=== PATIENT | female | born 1975 | race Caucasian/White ===

== ENCOUNTER 2017-06-03 13:03 | Emergency (ER) | payer SELFPAY ==
[~2017-06-03] VITALS: Ht 170.2 cm; Wt 86.2 kg
[~2017-06-03 13:03] MED LIST: ALBU8.5H IH; ATEN-65 PO; AZIT-1 PO; BUTA-324 PO; CEPH-1 PO; CODE118S5 PO; DEXLAN60PT PO; KET10 PO; LOR5/325 PO; MELO-149 PO; METH4TAB66 PO; ONDA4TAB PO; OXYC-865 PO; PRED20TA6 PO; SERT-173 PO; SULF-198 PO; SUMA25TA26 PO; TRAM-420 PO; TRAZ-133 PO; TRAZ-156 PO; [UNRECOGNIZED DRUG - CODE] PO
--- NOTE | 2017-06-03 13:12 | ER Report ---
History and Physical Time Seen By MD: 13:11 HPI/ROS CHIEF COMPLAINT: Vomiting and diarrhea HISTORY OF PRESENT ILLNESS: This is a 41-year-old female who presents to the emergency department for nausea, vomiting and diarrhea. Patient states that her fianc is sick with similar symptoms. She states that her symptoms began yesterday with some nausea and diarrhea as well as vomiting. Patient states that she does not have any episodes of diarrhea she's had 2 episodes of emesis today. Patient denies blood in the stool or emesis. She does have epigastric discomfort. Patient denies aches, chills, urinary, fevers or headaches. REVIEW OF SYSTEMS: Constitutional: No fever, no chills. Eyes: No discharge. ENT: No sore throat. Cardiovascular: No chest pain, no palpitations. Respiratory: No cough, no shortness of breath. Gastrointestinal: As above. Genitourinary: No hematuria. Musculoskeletal: No back pain. Skin: No rashes. Neurological: No headache. Allergies: Coded Allergies: latex (Verified Allergy, Unknown, 02/19/17) Home Meds Active Scripts Ondansetron Hcl (ZOFRAN) 4 Mg Tablet, 4 MG PO Q4-6H, #20 TAB Prov:MICHELLE BURKETT CDL DRIVER-BC 06/03/17 Ondansetron (ZOFRAN ODT) 4 Mg Tab.rapdis, 4 MG PO Q6H Y for NAUSEA/VOMITING, # 20 TAB.URSULA 0 Refills Prov:JALEN ARORA MD 02/19/17 Trazodone Hcl (TRAZODONE HCL) 50 Mg Tablet, 50 MG PO QHS, #30 TAB 0 Refills Prov:JALEN ARORA MD 02/19/17 Oxycodone Hcl/Acetaminophen (PERCOCET 5-325 MG TABLET) 1 Each Tablet, 1 EACH PO Q4H Y for PAIN, #15 TAB 0 Refills Prov:JALEN ARORA MD 02/19/17 Methylprednisolone (METHYLPREDNISOLONE) 4 Mg Tab.ds.pk, 4 MG PO DIRECTED, #1 PACK 0 Refills Prov:JALEN ARORA MD 02/19/17 Prednisone (PREDNISONE) 20 Mg Tablet, 60 MG PO QDAY, #15 TAB 0 Refills Prov:JALEN ARORA MD 02/19/17 Past Medical/Surgical History Patient has a past medical and surgical history of migraines, mitral valve prolapse, retention, asthma, esophageal scarring, GERD, arthritis, osteoarthritis, wears glasses, PTSD, anxiety, depression, both knees have been scoped, right ankle scope. Reviewed Nurses Notes: Yes Hx Smoking: No Smoking Status: Never Smoker Exposure to Second Hand Smoke?: No Hx Substance Use Disorder: No Constitutional Vital Sign - Last 24 Hours 06/03/17 06/03/17 06/03/17 06/03/17 13:13 13:16 13:30 13:33 Temp 98.9 Pulse 99 96 Resp 20 B/P (MAP) 127/82 (97) 127/82 124/80 (95) Pulse Ox 99 95 O2 Delivery Room Air 06/03/17 06/03/17 06/03/17 14:00 14:03 14:30 B/P (MAP) 120/78 (92) 123/76 (92) Pulse Ox 100 Intake and Output 06/03/17 06/03/17 06/04/17 15:00 23:00 07:00 Intake Total 1000 ml Balance 1000 ml Physical Exam General Appearance: The patient is alert, has no immediate need for airway protection and no signs of toxicity. Eyes: Pupils equal and round no pallor or injection. ENT, Mouth: Mucous membranes are moist, pale lips. Respiratory: There are no retractions, lungs are clear to auscultation. Cardiovascular: Regular rate and rhythm, distant systolic murmur, no clicks or rubs. Gastrointestinal: Abdomen is round and soft and tenderness to the epigastrium and palpation, no masses, hypoactive bowel sounds to the right and left upper quadrants, normoactive bowel sounds to the right left lower quadrants. Neurological: Alert and oriented 4. Moving all extremities. Following all commands. No focal neuro deficits. Skin: Warm and dry, no rashes. Musculoskeletal: Neck is supple non tender. Extremities are nontender, nonswollen and have full range of motion. DIFFERENTIAL DIAGNOSIS: After history and physical exam differential diagnosis was considered for abdominal pain including but not limited to appendicitis, cholecystitis, gastritis and urinary tract infection, C. difficile. Medical Decision Making Data Points Result Diagram: 06/03/17 1317 06/03/17 1320 Laboratory Hematology Test 06/03/17 13:10 06/03/17 13:17 06/03/17 13:20 Urine Color Yellow Urine Clarity Slightly-cloudy Urine pH 5.0 pH (4.8-9.5) Urine Specific Hartman 1.023 Urine Protein Negative mg/dL (NEGATIVE) Urine Glucose (UA) Negative mg/dL (NEGATIVE) Urine Ketones Negative mg/dL (NEGATIVE) Urine Blood Small (NEGATIVE) Urine Nitrite Negative (NEGATIVE) Urine Bilirubin Negative (NEGATIVE) Urine Urobilinogen Negative mg/dL (0.2-1.9) Urine Leukocyte Esterase Trace (NEGATIVE) Urine RBC 3 /HPF (0-2/HPF) Urine WBC 2 /HPF (0-5/HPF) Urine Squamous Epithelial Cells Many /LPF (</=FEW) Urine Bacteria Few /HPF (NONE-FEW) Urine Hyaline Casts Few /LPF (NONE-FEW) Urine Mucus Few /HPF (NONE-FEW) Red Blood Count 4.78 M/uL (4.17-5.56) Mean Corpuscular Volume 93.1 fL (80.0-96.0) Mean Corpuscular Hemoglobin 32.7 pg (26.0-33.0) Mean Corpuscular Hemoglobin Concent 35.1 g/dL (32.0-36.0) Red Cell Distribution Width 12.9 % (11.5-14.5) Mean Platelet Volume 7.4 fL (7.2-11.1) Neutrophils (%) (Auto) 77.7 % (39.4-72.5) Lymphocytes (%) (Auto) 9.9 % (17.6-49.6) Monocytes (%) (Auto) 11.0 % (4.1-12.4) Eosinophils (%) (Auto) 0.8 % (0.4-6.7) Basophils (%) (Auto) 0.6 % (0.3-1.4) Nucleated RBC Relative Count (auto) 0.1 /100WBC Neutrophils # (Auto) 6.9 K/uL (2.0-7.4) Lymphocytes # (Auto) 0.9 K/uL (1.3-3.6) Monocytes # (Auto) 1.0 K/uL (0.3-1.0) Eosinophils # (Auto) 0.1 K/uL (0.0-0.5) Basophils # (Auto) 0.1 K/uL (0.0-0.1) Nucleated RBC Absolute Count (auto) 0.01 K/uL Sodium Level 136 mmol/L (137-145) Potassium Level 3.9 mmol/L (3.5-5.0) Chloride Level 101 mmol/L (98-107) Carbon Dioxide Level 24 mmol/L (22-31) Blood Urea Nitrogen 14 mg/dl (7-18) Creatinine 0.90 mg/dl (0.52-1.04) Glomerular Filtration Rate Calc > 60.0 Random Glucose 102 mg/dl (75-110) Calcium Level 9.1 mg/dl (8.4-10.2) Total Bilirubin 1.1 mg/dl (0.2-1.3) Aspartate Amino Transf (AST/SGOT) 37 U/L (0-35) Alanine Aminotransferase (ALT/SGPT) 50 U/L (0-56) Alkaline Phosphatase 68 U/L (0-126) Total Protein 8.1 gm/dl (6.3-8.2) Albumin 4.1 g/dl (3.5-5.0) Chemistry Test 06/03/17 13:10 06/03/17 13:17 06/03/17 13:20 Urine Color Yellow Urine Clarity Slightly-cloudy Urine pH 5.0 pH (4.8-9.5) Urine Specific Hartman 1.023 Urine Protein Negative mg/dL (NEGATIVE) Urine Glucose (UA) Negative mg/dL (NEGATIVE) Urine Ketones Negative mg/dL (NEGATIVE) Urine Blood Small (NEGATIVE) Urine Nitrite Negative (NEGATIVE) Urine Bilirubin Negative (NEGATIVE) Urine Urobilinogen Negative mg/dL (0.2-1.9) Urine Leukocyte Esterase Trace (NEGATIVE) Urine RBC 3 /HPF (0-2/HPF) Urine WBC 2 /HPF (0-5/HPF) Urine Squamous Epithelial Cells Many /LPF (</=FEW) Urine Bacteria Few /HPF (NONE-FEW) Urine Hyaline Casts Few /LPF (NONE-FEW) Urine Mucus Few /HPF (NONE-FEW) White Blood Count 8.9 k/uL (4.5-11.0) Red Blood Count 4.78 M/uL (4.17-5.56) Hemoglobin 15.6 g/dL (12.0-16.0) Hematocrit 44.5 % (34.0-47.0) Mean Corpuscular Volume 93.1 fL (80.0-96.0) Mean Corpuscular Hemoglobin 32.7 pg (26.0-33.0) Mean Corpuscular Hemoglobin Concent 35.1 g/dL (32.0-36.0) Red Cell Distribution Width 12.9 % (11.5-14.5) Platelet Count 352 K/uL (150-450) Mean Platelet Volume 7.4 fL (7.2-11.1) Neutrophils (%) (Auto) 77.7 % (39.4-72.5) Lymphocytes (%) (Auto) 9.9 % (17.6-49.6) Monocytes (%) (Auto) 11.0 % (4.1-12.4) Eosinophils (%) (Auto) 0.8 % (0.4-6.7) Basophils (%) (Auto) 0.6 % (0.3-1.4) Nucleated RBC Relative Count (auto) 0.1 /100WBC Neutrophils # (Auto) 6.9 K/uL (2.0-7.4) Lymphocytes # (Auto) 0.9 K/uL (1.3-3.6) Monocytes # (Auto) 1.0 K/uL (0.3-1.0) Eosinophils # (Auto) 0.1 K/uL (0.0-0.5) Basophils # (Auto) 0.1 K/uL (0.0-0.1) Nucleated RBC Absolute Count (auto) 0.01 K/uL Glomerular Filtration Rate Calc > 60.0 Calcium Level 9.1 mg/dl (8.4-10.2) Total Bilirubin 1.1 mg/dl (0.2-1.3) Aspartate Amino Transf (AST/SGOT) 37 U/L (0-35) Alanine Aminotransferase (ALT/SGPT) 50 U/L (0-56) Alkaline Phosphatase 68 U/L (0-126) Total Protein 8.1 gm/dl (6.3-8.2) Albumin 4.1 g/dl (3.5-5.0) Urinalysis Test 06/03/17 13:10 Urine Color Yellow Urine Clarity Slightly-cloudy Urine pH 5.0 pH (4.8-9.5) Urine Specific Hartman 1.023 Urine Protein Negative mg/dL (NEGATIVE) Urine Glucose (UA) Negative mg/dL (NEGATIVE) Urine Ketones Negative mg/dL (NEGATIVE) Urine Blood Small (NEGATIVE) Urine Nitrite Negative (NEGATIVE) Urine Bilirubin Negative (NEGATIVE) Urine Urobilinogen Negative mg/dL (0.2-1.9) Urine Leukocyte Esterase Trace (NEGATIVE) Urine RBC 3 /HPF (0-2/HPF) Urine WBC 2 /HPF (0-5/HPF) Urine Squamous Epithelial Cells Many /LPF (</=FEW) Urine Bacteria Few /HPF (NONE-FEW) Urine Hyaline Casts Few /LPF (NONE-FEW) Urine Mucus Few /HPF (NONE-FEW) ED Course/Re-evaluation Clinical Indication for ER IV: Hydration, IV Access ED Course The patient was admitted to room. History and physical were obtained. Differential diagnoses were considered. An IV was started. A 1 L normal saline bolus was given. 4 mg IV Zofran. A CBC, CMP and UA were unremarkable. Unable to obtain stool studies while in the emergency department. I did review the results with the patient. The patient is feeling better at this time and feels that she could go home. I did send a prescription for Zofran to the patient's pharmacy. The patient was in agreement with this plan. Patient had no questions or concerns and was discharged home. Decision to Disposition Date: Jun 03, 2017 Decision to Disposition Time: 14:26 Depart Departure Latest Vital Signs Vital Signs Date Time Temp Pulse Resp B/P (MAP) Pulse Ox O2 Delivery O2 Flow Rate FiO2 06/03/17 14:30 123/76 (92) 06/03/17 14:03 100 06/03/17 13:33 96 06/03/17 13:16 98.9 20 Room Air Impression: Primary Impression: Gastroenteritis Condition: Improved Disposition: HOME OR SELF-CARE Referrals: TOMAS MTZ DO (PCP) New Scripts Ondansetron Hcl (ZOFRAN) 4 Mg Tablet 4 MG PO Q4-6H, #20 TAB Prov: MICHELLE BURKETT CDL DRIVER-BC 06/03/17 Patient Instructions: Gastroenteritis (ED) Additional Instructions: Drink plenty of fluids. Get plenty of rest. Try G2 instead of regular Gatorade. Try a clear liquid diet for the next 24-48 hours and progress your diet. May return to the ED for worsening symptoms. Follow up with your primary care provider. MICHELLE BURKETT CDL DRIVER-BC Jun 03, 2017 13:12
[2017-06-03] MEDS ORDERED: NS(*) 0.9% 1000 ML BAG 1,000 ML IV ONE (13:17)
[2017-06-03] MEDS ORDERED: ONDANSETRON 4 MG/2 ML VIAL IVP ONE (13:20)
[2017-06-03 13:42] LABS: PLATELET COUNT, AUTOMATED 352 K/uL (150-450)
[2017-06-03] MEDS ORDERED: ONDA4TAB97 PO (14:29)
[2017-06-03 14:30] VITALS: BP 123/76
== END 2017-06-03 14:42 | disposition home or self-care (01) ==
LOC: ER 13:13
DX: K52.9 Noninfective gastroenteritis and colitis, unspecified (principal)
CPT/HCPCS: 81001; 85025; 96361; 96374; 99284; J2405; J7030; 82040; 82247; 82310; 82374; 82435; 82565; 82947; 84075; 84132; 84155; 84295; 84450; 84460; 84520

== ENCOUNTER → 2017-06-22 | Outpatient (REF) ==
[~2017-06-22] MED LIST changes: +ONDA4TAB97 PO
--- NOTE | 2017-06-23 10:10 | RADIOLOGY IMAGING REPORT ---
FAC[place]: [facility] [place]IENT NAME: SHAR VALENCIA : [id number] MR: [id number] V: [id number] EXAM DATE: ORDERING PHYSICIAN: GALLITO VAZQUEZ TECHNOLOGIST: Paz Horn EXAMINATION:TWO-DIMENSIONAL ECHOCARDIOGRAPH REASON: 2D Measurements (normal values in centimeters) LV endLV endRV endVent.LV PostAorticLeftPercent DiastolicSystolicDiastolicSeptumWallRootAtriumShortening (3.5-5.7)(0.9-2.6)(0.6-1.1)(0.6-1.1)(2.0-3.7)(1.9-4.0)(25-35%) [id number]% STROKE VOLUME: 53 mL ESTIMATED EJECTION FRACTION:64% PARASTERNAL LONG AXIS: Overall left ventricular systolic function does appear to be normal. No specific wall motion abnormalities are noted. Color examination of the valves reveals a trace of mitral insufficiency present. Minimal amount of prolapse of the posterior leaflet of the mitral valve. Aortic valve appears to open normally. The right ventricle appears to be borderline enlarged. Other chamber sizes appear to be normal in size. PARASTERNAL SHORT AXIS: Overall left ventricular function again appears to be normal. No wall motion abnormalities are noted. The right ventricle is borderline enlarged. The other chamber sizes are normal. Color examination of the valves reveals a trace of pulmonic insufficiency and a trace of mitral and tricuspid insufficiency present. Aortic valve appears to be normal. APICAL FOUR AND TWO CHAMBER: Normal left ventricular ejection fraction. The right ventricle appears to be mildly enlarged. The left atrium and right atrial volumes are measured within normal ranges at 25 and 20 mL/m2. Aortic valve area and mitral valve area both measure within normal ranges at 3.0 and 2.7 cm2 respectively. SUBCOSTAL VIEW: No pericardial effusion was noted. No atrial septal or ventricular septal defects were appreciated. Doppler examination of the mitral valve in diastole does reveal a normal pattern. OVERALL IMPRESSION: 1. Normal left ventricular ejection fraction with normal diastolic function. Ejection fraction measured at 64%. 2. Right ventricle is borderline enlarged, the other chamber sizes are normal. 3. A trileaflet aortic valve with no abnormalities. 4. There is a trace of mitral, tricuspid and pulmonic insufficiency present. The estimated right ventricular systolic pressure is 39 mmHg which does include an estimated right atrial pressure of 8 mmHg indicating mild pulmonary hypertension and increased right ventricular systolic pressures. 5. Minimal prolapse of the posterior leaf of the mitral valve. Dictated by: Albino Yan M.D. on 06/22/2017 at 14:38 Transcribed by: TEVIN on 06/23/2017 at 9:52 Approved by: Albino Yan M.D. on 06/23/2017 at 10:09 [facility]
== END ==
LOC: US 02:06
PROVIDERS: ATTEND Nurse Practitioner
DX: I51.7 Cardiomegaly (principal); I34.0 Nonrheumatic mitral (valve) insufficiency; I36.1 Nonrheumatic tricuspid (valve) insufficiency; I37.1 Nonrheumatic pulmonary valve insufficiency
CPT/HCPCS: 93306

== ENCOUNTER → 2017-07-15 | Outpatient (REF) ==
--- NOTE | 2017-07-15 13:21 | RADIOLOGY IMAGING REPORT ---
FACILITY: [facility] - [place] PATIENT NAME: Megan Yang : 1975 MR: [id number] V: [id number] EXAM DATE: ORDERING PHYSICIAN: GALLITO VAZQUEZ TECHNOLOGIST: Location: [facility] - [place] Patient: Megan Yang : 1975 Visit/Account:[id number] Date of Sevice: 07/15/2017 ANKLE 3 VIEW MIN LEFT History: Left ankle pain. Comparison study: None. Findings: There is no fracture or dislocation involving the left ankle. There is enthesopathic chambers ge at the site of attachment of the Achilles tendon upon the calcaneus. IMPRESSION: Unremarkable left ankle images. Report Dictated By: Wilfrid Mobley MD at 07/15/2017 1:15 PM Report E-Signed By: Wilfrid Mobley MD at 07/15/2017 1:16 PM WSN:[email or web address]
--- NOTE | 2017-07-15 13:24 | RADIOLOGY IMAGING REPORT ---
FACILITY: [facility] PATIENT NAME: Megan Yang : 1975 MR: [id number] V: [id number] EXAM DATE: ORDERING PHYSICIAN: GALLITO VAZQUEZ TECHNOLOGIST: Location: [facility] - [place] Patient: Megan Yang : 1975 Visit/Account:[id number] Date of Sevice: 07/15/2017 KNEE 3 VIEWS BILATERAL History: Knee pain. Ankle pain. Comparison study: None. Findings: There is no fracture or dislocation involving the left knee. There is no joint effusion o r chondrocalcinosis. IMPRESSION: Normal x-rays of the left knee. Report Dictated By: Wilfrid Mobley MD at 07/15/2017 1:16 PM Report E-Signed By: Wilfrid Mobley MD at 07/15/2017 1:19 PM WSN:[email or web address]
== END ==
LOC: RAD 11:29
PROVIDERS: ATTEND Nurse Practitioner
DX: M25.562 Pain in left knee (principal); M25.561 Pain in right knee; M25.571 Pain in right ankle and joints of right foot; M25.572 Pain in left ankle and joints of left foot

== ENCOUNTER → 2017-07-17 | Outpatient (REF) | LOC: RESP 04:07 → EDSTATUS 13:00 | PROVIDERS: ATTEND Nurse Practitioner | DX: M25.562 Pain in left knee (principal); M25.561 Pain in right knee; M25.571 Pain in right ankle and joints of right foot; M25.572 Pain in left ankle and joints of left foot | CPT/HCPCS: 94060; 94726; 94729 ==

== ENCOUNTER 2017-08-22 14:08 | Emergency (ER) | payer SELFPAY ==
[2017-08-22 14:21] VITALS: BP 141/100
[2017-08-22] MEDS ORDERED: METO50TA19 PO (14:29)
[2017-08-22] MEDS ORDERED: ALBU8.5H IH (14:31)
[2017-08-22] MEDS ORDERED: LIDO700A19 (14:31)
[2017-08-22] MEDS ORDERED: GABA-549 PO (14:31)
[2017-08-22] MEDS ORDERED: HYDR-2966 PO (14:31)
[2017-08-22] MEDS ORDERED: SERT-184 PO (14:31)
[2017-08-22] MEDS ORDERED: MELO-205 PO (14:31)
[2017-08-22] MEDS ORDERED: CYCL10TA29 PO (14:31)
[2017-08-22] MEDS ORDERED: TRAZ-156 PO (14:31)
--- NOTE | 2017-08-22 14:43 | ER Report ---
History and Physical Time Seen By MD: 14:20 Hx. of Stated Complaint: far back lwer left tooth pain. tooth is broken, gum is painful HPI/ROS CHIEF COMPLAINT: Dental pain HISTORY OF PRESENT ILLNESS: Pt has long hx of dental caries. Pt states that she was told it is due to her arthritis and meds. Pt a week ago had her left lower third molar break. States that the remainer of the tooth is jagged and sharp. Her gums have become swollen and she has bad taste in mouth. Pt has no isnurance and is followed at [facility]. Has an appt this Thursday and they were going to assist her to see a dentist. Pt here for medication to prevent infection. REVIEW OF SYSTEMS: GEN: no fevers HEENT: + dental cavitiy Respiratory: No cough, no dyspnea. Cardiovascular: No chest pain, no palpitations. Gastrointestinal: + vomiting yesterday,+ diarrhea yesterday, no abdominal pain. Musculoskeletal: No back pain. Allergies: Coded Allergies: latex (Verified Allergy, Unknown, 08/22/17) Home Meds Active Scripts Hydrocodone Bit/Acetaminophen (HYDROCODON-ACETAMINOPHEN 5-325) 1 Each Tablet, 1 EACH PO Q4-6H Y for PAIN, #15 TAB Prov:CHITRA MARQUEZSA V DO 08/22/17 Amoxicillin 500 Mg Tab (AMOXICILLIN 500 MG TAB) 500 Mg Tablet, 1 TAB PO TID, # 21 TAB Prov:LAURORAVINITA V DO 08/22/17 Reported Medications Sertraline Hcl (SERTRALINE HCL) 50 Mg Tablet, 1 TAB PO QDAY, TAB 08/22/17 Lidocaine (Lidocaine) 5 % Adh..patch 08/22/17 Cyclobenzaprine Hcl (CYCLOBENZAPRINE HCL) 10 Mg Tablet, 10 MG PO TID, #9 TAB 08/22/17 Trazodone Hcl (TRAZODONE HCL) 50 Mg Tablet, 50 MG PO QHS 08/22/17 Meloxicam (MELOXICAM) 7.5 Mg Tablet, 7.5 MG PO QDAY 08/22/17 Gabapentin (GABAPENTIN) 300 Mg Capsule, 300 MG PO TID, CAPSULE 08/22/17 Albuterol Sulfate 90 Mcg/Act (PROAIR HFA 90 MCG/ACT) 8.5 Gm Hfa.aer.ad, 1-2 PUFF IH 3-4XD, INHALER 08/22/17 Hydrochlorothiazide (HYDROCHLOROTHIAZIDE) 25 Mg Tablet, 1 TAB PO QDAY, TAB 08/22/17 Metoprolol Succinate (METOPROLOL SUCCINATE) 50 Mg Tab.er.24h, 1 TAB PO QDAY, TAB 08/22/17 Discontinued Scripts Ondansetron Hcl (ZOFRAN) 4 Mg Tablet, 4 MG PO Q4-6H, #20 TAB Prov:MICHELLE BURKETT EXPERIENCE DESIGNER-BC 06/03/17 Ondansetron (ZOFRAN ODT) 4 Mg Tab.rapdis, 4 MG PO Q6H Y for NAUSEA/VOMITING, # 20 TAB.URSULA 0 Refills Prov:JALEN ARORA MD 02/19/17 Trazodone Hcl (TRAZODONE HCL) 50 Mg Tablet, 50 MG PO QHS, #30 TAB 0 Refills Prov:JALEN ARORA MD 02/19/17 Oxycodone Hcl/Acetaminophen (PERCOCET 5-325 MG TABLET) 1 Each Tablet, 1 EACH PO Q4H Y for PAIN, #15 TAB 0 Refills Prov:JALEN ARORA MD 02/19/17 Methylprednisolone (METHYLPREDNISOLONE) 4 Mg Tab.ds.pk, 4 MG PO DIRECTED, #1 PACK 0 Refills Prov:JALEN ARORA MD 02/19/17 Prednisone (PREDNISONE) 20 Mg Tablet, 60 MG PO QDAY, #15 TAB 0 Refills Prov:JALEN ARORA MD 02/19/17 Past Medical/Surgical History Pmhx: mvp, phtn, OA, bone spurs, ddd, cervical herniation, carpal tunnel, gerd, migraines, insommnia, depression, panic attacks Pshx: tubal ligation and bilateral knee scopes and right ankle arthroscopic surgery Hx Smoking: No Smoking Status: Never Smoker Exposure to Second Hand Smoke?: No Hx Substance Use Disorder: No Hx Alcohol Use: No Constitutional Vital Sign - Last 24 Hours 08/22/17 14:21 Temp 99.5 Pulse 105 Resp 18 B/P (MAP) 141/100 Pulse Ox 93 O2 Delivery Room Air Physical Exam General Appearance: The patient is alert, has no immediate need for airway protection and no signs of toxicity. Eyes: Pupils equal and round no pallor or injection, EOMI ENT: no pharyngeal erythema or exudates, Mucous membranes are moist, TM are nl b/l, + varius dental cavities, + left lower molar is brown with hollow center and jagged tooth hitting pts cheek line; no palpable abscess in gum line Respiratory: There are no retractions, lungs are clear to auscultation. Cardiovascular: Regular rate and rhythm. pulses are equal and symmetrical Gastrointestinal: Abdomen is soft and non tender, no masses, bowel sounds normal, no guarding, no rigidity or rebound Neurological: Cranial nerves II-XII grossly intact, no sensory or motor loss Skin: Warm and dry, no rashes. Musculoskeletal: Neck is supple non tender, no vertebral tenderness Extremities are nontender, non swollen and have full range of motion. DIFFERENTIAL DIAGNOSIS: After history and physical exam differential diagnosis was considered for dental abscess, dental caries Medical Decision Making ED Course/Re-evaluation ED Course Spoke with pt at length. Recommend dental wax to cover the jagged part of tooth which is hitting pts gums. Pt states [facility] is also helping patient get into a dentist Decision to Disposition Date: Aug 22, 2017 Decision to Disposition Time: 14:58 Depart Departure Latest Vital Signs Vital Signs Date Time Temp Pulse Resp B/P (MAP) Pulse Ox O2 Delivery O2 Flow Rate FiO2 08/22/17 14:21 99.5 105 18 141/100 93 Room Air Impression: Primary Impression: Pain due to dental caries Condition: Condition Unchanged Disposition: HOME OR SELF-CARE New Scripts Hydrocodone Bit/Acetaminophen (HYDROCODON-ACETAMINOPHEN 5-325) 1 Each Tablet 1 EACH PO Q4-6H Y for PAIN, #15 TAB Prov: VINITA MARQUEZ DO 08/22/17 Amoxicillin 500 Mg Tab (AMOXICILLIN 500 MG TAB) 500 Mg Tablet 1 TAB PO TID, #21 TAB Prov: VINITA MARQUEZ DO 08/22/17 Departure Forms: ER Transition Record, Medications Reconciliation, Patient Portal Information Additional Instructions: Follow up with the Dentist as soon as you are able to. Amoxil three times a day until finished. Lortab (narcotic) one every 6 hours for severe pain only. Recommend you purchase dental wax (found near the dental floss area in [facility]) . Use the wax to fill the hole and to blunt the jagged area of your tooth. This will help with pain control VINITA MARQUEZ DO Aug 22, 2017 14:43
[2017-08-22] MEDS ORDERED: AMOX500T10 PO (14:59)
[2017-08-22] MEDS ORDERED: LOR5/325 PO (14:59)
== END 2017-08-22 15:14 | disposition home or self-care (01) ==
LOC: ER 14:14
DX: K02.9 Dental caries, unspecified (principal)
CPT/HCPCS: 99283